=== PATIENT | male | born 1970 | race Caucasian/White ===

== ENCOUNTER → 2019-03-22 | Outpatient (CLI) | payer MEDICARE ==
--- NOTE | 2019-03-22 11:37 | REP ---
Right small toe series: Four views. History: Pain after injury. Findings: Four views of the right small toe demonstrate an intra-articular fracture involving the base of the proximal phalanx at the MTP joint. There is associated swelling. No displacement. Impression: Intra-articular fracture proximal phalanx of the fifth toe at the MTP joint. Nondisplaced. Electronically Signed by Dinesh Gonzalez MD 03/22/2019 11:28 A
== END ==
LOC: M WUC 10:13
PROVIDERS: ATTEND Physician Assistant
DX: S92.514A Nondisplaced fracture of proximal phalanx of right lesser toe(s), initial encounter for closed fracture (principal); X58.XXXA Exposure to other specified factors, initial encounter; Y92.89 Other specified places as the place of occurrence of the external cause

== ENCOUNTER → 2019-04-05 | Outpatient (REF) | payer MEDICARE ==
[2019-04-05 13:29] LABS: AMYLASE 49 U/L (25-115); LIPASE 134 U/L (73-393)
== END ==
LOC: M LAB REF 12:34
PROVIDERS: ATTEND Nurse Practitioner Adult Health
DX: R11.2 Nausea with vomiting, unspecified (principal)

== ENCOUNTER → 2022-03-08 | Outpatient (CLI) | payer MEDICARE | LOC: M RAD 11:33 | PROVIDERS: ATTEND Pain Medicine Interventional Pain Medicine | DX: M16.0 Bilateral primary osteoarthritis of hip (principal) ==

== ENCOUNTER 2022-04-02 12:08 | Emergency (ER) | payer MEDICARE ==
[2022-04-02] MEDS ORDERED: NS 500 ML IV ONE (12:45)
[2022-04-02 12:50] LABS: BASO % 0.5 % (0.0-1.0); EOS # 0.1 10^3/uL (0.0-0.5); EOS % 2.3 % (0.0-3.0); HEMATOCRIT 47.6 % (42.0-52.0); HEMOGLOBIN 16.7 g/dl (13.5-17.5); LYMPH # 1.5 10^3/uL (1.5-5.0); MEAN CORPUSCULAR HEMOGLOBIN 31.2 pg (27.0-33.0); MEAN CORPUSCULAR HGB CONC 35.1 g/dl (32.0-36.5); MEAN CORPUSCULAR VOLUME 88.8 fl (80.0-96.0); MONO # 0.6 10^3/uL (0.0-0.8); MONO % 11.5 % (2.0-8.0); NEUTROPHILS # 3.3 10^3/uL (1.5-8.5); NEUTROPHILS % 59.3 % (36.0-66.0); PLATELET COUNT, AUTOMATED 310 10^3/uL (150-450); RED BLOOD COUNT 5.36 10^6/uL (4.30-6.10); WHITE BLOOD COUNT 5.6 10^3/uL (4.0-10.0)
[2022-04-02] MEDS ORDERED: LORazepam 2 MG/ML VIAL IV STA (12:53)
[2022-04-02 13:18] LABS: MB/CK RELATIVE INDEX 2.05 (< OR =4)
[2022-04-02] MEDS ORDERED: ISOVUE-370 76% 100ML VIAL As Ordered ONE (13:42)
[2022-04-02 14:13] LABS: ALBUMIN 4.4 GM/DL (3.2-5.2); ALT/SGPT 78 U/L (12-78); BILIRUBIN,DIRECT 0.2 MG/DL (0.0-0.2); BILIRUBIN,TOTAL 0.5 MG/DL (0.2-1.0); BLOOD UREA NITROGEN 13 MG/DL (7-18); CARBON DIOXIDE LEVEL 19 MEQ/L (21-32); CHLORIDE LEVEL 106 MEQ/L (98-107); CREATININE FOR GFR 1.18 MG/DL (0.70-1.30); ETHYL ALCOHOL (ETHANOL) < 0.003 % (0.000-0.010); FREE T4 0.81 NG/DL (0.76-1.46); GLOMERULAR FILTRATION RATE > 60.0 (>56); GLUCOSE, FASTING 121 MG/DL (70-100); LIPASE 117 U/L (73-393); SODIUM LEVEL 139 MEQ/L (136-145); TOTAL PROTEIN 7.8 GM/DL (6.4-8.2)
[2022-04-02 14:39] LABS: CK-MB VALUE MASS 4.9 NG/ML (<3.6); MB/CK RELATIVE INDEX 1.75 (< OR =4)
[2022-04-02 14:41] LABS: INR 0.87; PROTHROMBIN TIME 12.2 SECONDS (12.7-14.5)
[2022-04-02 14:42] LABS: PARTIAL THROMBOPLASTIN TIME 27.7 SECONDS (25.9-37.0)
[2022-04-02 15:54] LABS: AMPHETAMINES LEVEL URINE NEGATIVE (NEGATIVE); BARBITURATES URINE NEGATIVE (NEGATIVE); BENZODIAZEPINES URINE NEGATIVE (NEGATIVE); CANNABINOIDS URINE POSITIVE (NEGATIVE); COCAINE METABOLITE URINE NEGATIVE (NEGATIVE); METHADONE URINE NEGATIVE (NEGATIVE); OPIATES URINE POSITIVE (NEGATIVE); PHENCYCLIDINE URINE NEGATIVE (NEGATIVE)
[2022-04-02 16:32] LABS: CK-MB VALUE MASS 4.4 NG/ML (<3.6); MB/CK RELATIVE INDEX 1.46 (< OR =4)
[2022-04-02 16:45] VITALS: BP 142/75
== END 2022-04-02 17:24 | disposition home or self-care (01) ==
LOC: M ED 12:08
DX: R07.9 Chest pain, unspecified (principal); I48.91 Unspecified atrial fibrillation; I10 Essential (primary) hypertension
CPT/HCPCS: 71045; 71275; 80047; 80048; 80076; 80307; 82077; 82550; 82553; 83690; 84439; 84443; 84484; 85025; 85610; 85730; 87486; 87581; 87633; 87798; 93005; 93041; 94760; 96361; 96374; 99285; J2060; Q9967

== ENCOUNTER 2022-10-24 12:57 | Emergency (ER) | payer MEDICARE ==
[~2022-10-24] VITALS: Ht 188 cm; Wt 127.3 kg
[2022-10-24 13:47] LABS: BASO % 0.9 % (0.0-1.0); EOS # 0.2 10^3/uL (0.0-0.5); EOS % 3.2 % (0.0-3.0); HEMATOCRIT 50.3 % (42.0-52.0); HEMOGLOBIN 17.2 g/dl (13.5-17.5); LYMPH # 1.2 10^3/uL (1.5-5.0); LYMPH % 25.8 % (24.0-44.0); MEAN CORPUSCULAR HEMOGLOBIN 31.7 pg (27.0-33.0); MEAN CORPUSCULAR HGB CONC 34.2 g/dl (32.0-36.5); MEAN CORPUSCULAR VOLUME 92.6 fl (80.0-96.0); MONO # 0.5 10^3/uL (0.0-0.8); MONO % 11.7 % (2.0-8.0); NEUTROPHILS # 2.7 10^3/uL (1.5-8.5); PLATELET COUNT, AUTOMATED 264 10^3/uL (150-450); RED BLOOD COUNT 5.43 10^6/uL (4.30-6.10); WHITE BLOOD COUNT 4.6 10^3/uL (4.0-10.0)
[2022-10-24 14:01] LABS: INR 0.91; PROTHROMBIN TIME 12.4 SECONDS (12.5-14.5)
[2022-10-24 14:12] LABS: BILIRUBIN,DIRECT 0.3 MG/DL (<0.4); BILIRUBIN,TOTAL 0.9 MG/DL (0.3-1.2); CK-MB VALUE MASS 3.1 NG/ML (<3.6); TOTAL PROTEIN 7.1 G/DL (5.7-8.2)
[2022-10-24 14:27] LABS: MB/CK RELATIVE INDEX 1.49 (< OR =4)
[2022-10-24 15:12] LABS: BLOOD UREA NITROGEN 7 MG/DL (9-23); CALCIUM LEVEL 9.1 MG/DL (8.5-10.1); CARBON DIOXIDE LEVEL 26 MMOL/L (20-31); CHLORIDE LEVEL 106 MMOL/L (98-107); CREATININE FOR GFR 0.69 MG/DL (0.70-1.30); GLOMERULAR FILTRATION RATE > 60.0 (>56); GLUCOSE, FASTING 98 MG/DL (60-100); POTASSIUM SERUM 4.1 MMOL/L (3.5-5.1); SODIUM LEVEL 139 MMOL/L (136-145)
[2022-10-24] MEDS ORDERED: ACETAMINOPHEN 500 MG TAB PO ONE (15:20)
[2022-10-24] MEDS ORDERED: ISOVUE-370 76% 100ML VIAL As Ordered ONE (15:23)
[2022-10-24] MEDS ORDERED: amLODIPine 5 MG TAB PO ONE (17:05)
[2022-10-24 17:13] VITALS: BP 168/82
[2022-10-24 18:00] VITALS: BP 152/91
[2022-10-24] MEDS ORDERED: AMLO1TAB24 PO (18:17)
== END 2022-10-24 18:54 | disposition home or self-care (01) ==
LOC: M ED 12:57
DX: I10 Essential (primary) hypertension (principal); R51.9 Headache, unspecified; M54.9 Dorsalgia, unspecified; F41.9 Anxiety disorder, unspecified; K21.9 Gastro-esophageal reflux disease without esophagitis; I48.91 Unspecified atrial fibrillation; Z87.891 Personal history of nicotine dependence; Z82.49 Family history of ischemic heart disease and other diseases of the circulatory system
CPT/HCPCS: 36415; 71045; 71275; 80047; 80048; 80076; 82550; 82553; 83690; 84484; 85025; 85610; 93005; 93041; 94760; 99285; Q9967

== ENCOUNTER → 2023-12-26 | Outpatient (REF) | payer MEDICARE ==
[~2023-12-26] MED LIST: AMLO1TAB24 PO
[2023-12-26 11:32] LABS: BASO % 0.4 % (0.0-1.0); EOS # 0.2 10^3/uL (0.0-0.5); EOS % 4.8 % (0.0-3.0); HEMATOCRIT 47.3 % (42.0-52.0); LYMPH # 1.6 10^3/uL (1.5-5.0); LYMPH % 33.8 % (24.0-44.0); MEAN CORPUSCULAR HEMOGLOBIN 32.4 pg (27.0-33.0); MEAN CORPUSCULAR HGB CONC 33.8 g/dl (32.0-36.5); MEAN CORPUSCULAR VOLUME 95.7 fl (80.0-96.0); MONO # 0.5 10^3/uL (0.0-0.8); MONO % 11.1 % (2.0-8.0); NEUTROPHILS # 2.4 10^3/uL (1.5-8.5); NEUTROPHILS % 49.7 % (36.0-66.0); PLATELET COUNT, AUTOMATED 298 10^3/uL (150-450); RED BLOOD COUNT 4.94 10^6/uL (4.30-6.10); WHITE BLOOD COUNT 4.8 10^3/uL (4.0-10.0)
[2023-12-26 11:58] LABS: ALBUMIN 4.2 G/DL (3.2-5.2)
[2023-12-26 12:06] LABS: PERCENT SATURATION 34.5 % (19.7-50.0)
== END ==
LOC: M LABWUC 10:30
PROVIDERS: ATTEND Orthopaedic Surgery
DX: Z01.818 Encounter for other preprocedural examination (principal); M25.562 Pain in left knee; M17.9 Osteoarthritis of knee, unspecified

== ENCOUNTER → 2024-01-02 | Outpatient (REF) | payer MEDICARE ==
[2024-01-02 16:29] LABS: INR 0.97; PARTIAL THROMBOPLASTIN TIME 27.3 SECONDS (24.8-34.2); PROTHROMBIN TIME 12.6 SECONDS (12.5-14.5)
== END ==
LOC: M LAB REF 16:10
PROVIDERS: ATTEND Internal Medicine
DX: Z01.818 Encounter for other preprocedural examination (principal); Z79.01 Long term (current) use of anticoagulants

== ENCOUNTER 2024-01-25 22:16 | Emergency (ER) | payer MEDICARE ==
[~2024-01-25] VITALS: Ht 188 cm; Wt 127.3 kg
[2024-01-25 22:36] VITALS: TEMP 97.4
[2024-01-25] MEDS ORDERED: FAMOTIDINE/NS 20MG/50ML BAG As Ordered ONE (22:42)
[2024-01-25] MEDS ORDERED: methylPREDNISolone 125MG 2ML VIAL As Ordered ONE (22:42)
[2024-01-25] MEDS ORDERED: FAMOTIDINE 20MG/2ML VIAL IVP ONE (22:45)
[2024-01-25] MEDS: methylPREDNISolone 125MG 2ML VIAL IV ONE (22:50)
[2024-01-25] MEDS: FAMOTIDINE IV BAG 20 MG in IV 1 EA IV ONE (22:55)
[2024-01-25 23:03] LABS: BASO % 0.4 % (0.0-1.0); EOS # 0.2 10^3/uL (0.0-0.5); EOS % 2.5 % (0.0-3.0); HEMATOCRIT 39.6 % (42.0-52.0); HEMOGLOBIN 13.7 g/dl (13.5-17.5); LYMPH # 1.5 10^3/uL (1.5-5.0); LYMPH % 19.7 % (24.0-44.0); MEAN CORPUSCULAR HEMOGLOBIN 32.6 pg (27.0-33.0); MEAN CORPUSCULAR HGB CONC 34.6 g/dl (32.0-36.5); MEAN CORPUSCULAR VOLUME 94.3 fl (80.0-96.0); MONO # 0.7 10^3/uL (0.0-0.8); MONO % 9.9 % (2.0-8.0); NEUTROPHILS % 66.7 % (36.0-66.0); PLATELET COUNT, AUTOMATED 461 10^3/uL (150-450); WHITE BLOOD COUNT 7.5 10^3/uL (4.0-10.0)
[2024-01-25 23:39] LABS: BLOOD UREA NITROGEN 19 MG/DL (9-23); CALCIUM LEVEL 9.3 MG/DL (8.5-10.1); CARBON DIOXIDE LEVEL 29 MMOL/L (20-31); CHLORIDE LEVEL 106 MMOL/L (98-107); CREATININE FOR GFR 0.78 MG/DL (0.70-1.30); GLOMERULAR FILTRATION RATE > 60.0 (>56); GLUCOSE, FASTING 113 MG/DL (60-100); POTASSIUM SERUM 4.2 MMOL/L (3.5-5.1); SODIUM LEVEL 140 MMOL/L (136-145)
[2024-01-25] MEDS: diphenhydrAMINE 50MG/ML VIAL IV STA (23:50)
[2024-01-26] MEDS: NS 1,000 ML IV ONE
[2024-01-26 00:46] VITALS: BP 106/72; O2SAT 97
[2024-01-26] MEDS ORDERED: PRED20TA PO (00:50)
[2024-01-26] MEDS ORDERED: HYDR-3713 (18:46)
[2024-01-26] MEDS ORDERED: CELE0.09 PO (22:39)
[2024-01-26] MEDS ORDERED: ASPI-615 PO (22:39)
[2024-01-26] MEDS ORDERED: AMIT25TA19 PO (22:39)
[2024-01-26] MEDS ORDERED: METH-1164 PO (22:39)
[2024-01-26] MEDS ORDERED: DOCU100C16 PO (22:39)
[2024-01-26] MEDS ORDERED: HYDR-4571 PO (22:39)
[2024-01-26] MEDS ORDERED: OLME20TA50 PO (22:39)
[2024-01-26] MEDS ORDERED: CART240C3 PO (22:39)
[2024-01-29] MEDS ORDERED: FEXO-157 PO (10:20)
== END 2024-01-26 00:50 | disposition home or self-care (01) ==
LOC: M ED 22:16
DX: T78.40XA Allergy, unspecified, initial encounter (principal); T78.3XXA Angioneurotic edema, initial encounter; I48.91 Unspecified atrial fibrillation; I10 Essential (primary) hypertension; F12.10 Cannabis abuse, uncomplicated; Z79.1 Long term (current) use of non-steroidal anti-inflammatories (NSAID); Z79.899 Other long term (current) drug therapy

== ENCOUNTER 2024-01-26 17:10 | Observation (INO) | payer MEDICARE ==
[~2024-01-26] VITALS: Ht 188 cm; Wt 126.2 kg
[~2024-01-26 17:10] MED LIST changes: +PRED20TA PO
[2024-01-26 17:44] LABS: BASO % 0.2 % (0.0-1.0); HEMATOCRIT 36.1 % (42.0-52.0); HEMOGLOBIN 12.7 g/dl (13.5-17.5); LYMPH # 0.8 10^3/uL (1.5-5.0); LYMPH % 4.8 % (24.0-44.0); MEAN CORPUSCULAR HEMOGLOBIN 32.7 pg (27.0-33.0); MEAN CORPUSCULAR HGB CONC 35.2 g/dl (32.0-36.5); MONO # 1.2 10^3/uL (0.0-0.8); MONO % 6.9 % (2.0-8.0); NEUTROPHILS # 14.6 10^3/uL (1.5-8.5); NEUTROPHILS % 87.4 % (36.0-66.0); PLATELET COUNT, AUTOMATED 504 10^3/uL (150-450); RED BLOOD COUNT 3.88 10^6/uL (4.30-6.10); WHITE BLOOD COUNT 16.7 10^3/uL (4.0-10.0)
[2024-01-26 18:05] LABS: BLOOD UREA NITROGEN 17 MG/DL (9-23); CALCIUM LEVEL 9.5 MG/DL (8.5-10.1); CARBON DIOXIDE LEVEL 23 MMOL/L (20-31); CHLORIDE LEVEL 105 MMOL/L (98-107); CREATININE FOR GFR 0.68 MG/DL (0.70-1.30); GLOMERULAR FILTRATION RATE > 60.0 (>56); GLUCOSE, FASTING 216 MG/DL (60-100); POTASSIUM SERUM 3.8 MMOL/L (3.5-5.1); SODIUM LEVEL 138 MMOL/L (136-145)
[2024-01-26] MEDS ORDERED: ISOVUE-370 76% 100ML VIAL As Ordered ONE (18:18)
[2024-01-26 18:32] LABS: CK-MB VALUE MASS < 1.0 NG/ML (<3.6)
[2024-01-26 18:33] LABS: CPK CREATINE PHOSPHOKINASE 70 U/L (46-171); MB/CK RELATIVE INDEX 1.42 (< OR =4)
[2024-01-26] MEDS: methylPREDNISolone 125MG 2ML VIAL IV ONE (18:37)
[2024-01-26] MEDS: FAMOTIDINE 20MG/2ML VIAL IVP ONE (18:38)
[2024-01-26] MEDS ORDERED: HYDR-3713 (18:46)
[2024-01-26 19:33] LABS: CK-MB VALUE MASS < 1.0 NG/ML (<3.6)
[2024-01-26 19:34] LABS: CPK CREATINE PHOSPHOKINASE 69 U/L (46-171); MB/CK RELATIVE INDEX 1.44 (< OR =4)
[2024-01-26] MEDS ORDERED: MOM 30ML SUSPENSION UDC PO PRN (21:40)
[2024-01-26] MEDS: ASPIRIN 81MG ENTERIC TABLET PO SCH (21:40)
[2024-01-26] MEDS ORDERED: ACETAMINOPHEN TAB 650MG DOSE (2X325MG) PO PRN (21:40)
[2024-01-26] MEDS ORDERED: AMIT25TA19 PO (22:39)
[2024-01-26] MEDS ORDERED: DOCU100C16 PO (22:39)
[2024-01-26] MEDS ORDERED: METH-1164 PO (22:39)
[2024-01-26] MEDS ORDERED: HYDR-4571 PO (22:39)
[2024-01-26] MEDS ORDERED: CART240C3 PO (22:39)
[2024-01-26] MEDS ORDERED: CELE0.09 PO (22:39)
[2024-01-26] MEDS ORDERED: OLME20TA50 PO (22:39)
[2024-01-26] MEDS ORDERED: ASPI-615 PO (22:39)
[2024-01-26] MEDS ORDERED: HOME MED LIST COMPLETE! XX SCH (22:40)
[2024-01-26] MEDS: MORPHINE 2 MG/ML 1ML VIAL IV ONE (23:06)
[2024-01-27] MEDS: methocarbamoL 500 MG TAB PO SCH (00:30)
[2024-01-27] MEDS: methylPREDNISolone 40MG 1ML VIAL IV SCH ×2 (05:50→10:07)
[2024-01-27 07:33] LABS: HEMOGLOBIN 13.1 g/dl (13.5-17.5); MEAN CORPUSCULAR HEMOGLOBIN 32.7 pg (27.0-33.0); MEAN CORPUSCULAR HGB CONC 34.5 g/dl (32.0-36.5); MEAN CORPUSCULAR VOLUME 94.8 fl (80.0-96.0); PLATELET COUNT, AUTOMATED 500 10^3/uL (150-450); RED BLOOD COUNT 4.01 10^6/uL (4.30-6.10); WHITE BLOOD COUNT 13.3 10^3/uL (4.0-10.0)
[2024-01-27] MEDS: diphenhydrAMINE 50MG/ML VIAL IV ONE (07:51)
[2024-01-27] MEDS: NS 500 ML IV ONE (07:51)
[2024-01-27] MEDS: MORPHINE 2 MG/ML 1ML VIAL IV PRN (07:52)
[2024-01-27 07:53] LABS: ALBUMIN 3.8 G/DL (3.2-5.2); ALKALINE PHOSPHATASE 81 U/L (46-116); ALT/SGPT 35 U/L (7.0-40); AST/SGOT 12 U/L (<34); BILIRUBIN,TOTAL 0.6 MG/DL (0.3-1.2); BLOOD UREA NITROGEN 14 MG/DL (9-23); CALCIUM LEVEL 9.4 MG/DL (8.5-10.1); CARBON DIOXIDE LEVEL 25 MMOL/L (20-31); CHLORIDE LEVEL 107 MMOL/L (98-107); CREATININE FOR GFR 0.57 MG/DL (0.70-1.30); GLOMERULAR FILTRATION RATE > 60.0 (>56); GLUCOSE, FASTING 169 MG/DL (60-100); POTASSIUM SERUM 4.5 MMOL/L (3.5-5.1); SODIUM LEVEL 139 MMOL/L (136-145); TOTAL PROTEIN 6.6 G/DL (5.7-8.2)
[2024-01-27] MEDS ORDERED: dilTIAZem 120MG **CD** CAPSULE PO SCH (09:00)
[2024-01-27 09:20] VITALS: BP 128/70; TEMP 98.2; O2SAT 98
[2024-01-27] MEDS: DOCUSATE SODIUM 100MG CAPSULE PO SCH (10:08)
[2024-01-27] MEDS: CETIRIZINE (ZyrTEC) 10 MG TAB PO SCH (10:09)
[2024-01-27] MEDS: ENOXAPARIN 40MG/0.4ML SYRINGE (J1650 PER 10MG) SC SCH (10:09)
[2024-01-27] MEDS: FAMOTIDINE IV BAG 20 MG in IV 1 EA IV SCH (11:28)
[2024-01-27] MEDS: NORCO, ANEXSIA 5/325MG TABLET (HYDROcodone/ACETAMINOPHEN) PO PRN ×3 (11:28→20:26)
[2024-01-27] MEDS: NICOTINE 21MG/24HR 1 EA TRANSDERMAL TD SCH (11:29)
[2024-01-27] MEDS: NS 1,000 ML IV SCH (11:42)
[2024-01-27 12:04] VITALS: BP 130/64; TEMP 98.8; O2SAT 94
[2024-01-27 15:57] VITALS: BP 114/59; TEMP 98.1; O2SAT 96
[2024-01-27] MEDS: CALCIUM CARBONATE 500 MG CHEW U/D PO PRN (18:06)
[2024-01-27 19:48] VITALS: BP 131/60; TEMP 97.7; O2SAT 94
[2024-01-27] MEDS: AMITRIPTYLINE 25MG TABLET PO PRN (20:20)
[2024-01-27 23:58] VITALS: BP 116/57; TEMP 97.9; O2SAT 93
[2024-01-28 03:44] VITALS: BP 113/65; TEMP 97.3; O2SAT 97
[2024-01-28 08:00] VITALS: BP 119/66; TEMP 98.5; O2SAT 96
[2024-01-28] MEDS: diphenhydrAMINE 50MG/ML VIAL IV ONE ×2 (10:28→19:21)
[2024-01-28] MEDS: traMADol 50 MG TAB PO PRN (10:29)
[2024-01-28 12:00] VITALS: BP 121/66; TEMP 99.2; O2SAT 96
[2024-01-28] MEDS: HYDROmorphone 4MG TABLET PO PRN (14:04)
[2024-01-28 17:00] VITALS: BP 130/59; TEMP 97.4; O2SAT 94
[2024-01-28 19:59] VITALS: BP 131/72; TEMP 98.1; O2SAT 95
[2024-01-28] MEDS: SENNA 8.6 MG TAB (SENOKOT) PO SCH (20:02)
[2024-01-28 23:53] VITALS: BP 123/59; TEMP 98.6; O2SAT 95
[2024-01-29 03:45] VITALS: BP 124/67; TEMP 98.2; O2SAT 96
[2024-01-29 06:58] LABS: HEMATOCRIT 35.7 % (42.0-52.0); HEMOGLOBIN 11.9 g/dl (13.5-17.5); MEAN CORPUSCULAR HEMOGLOBIN 31.6 pg (27.0-33.0); MEAN CORPUSCULAR HGB CONC 33.3 g/dl (32.0-36.5); MEAN CORPUSCULAR VOLUME 94.9 fl (80.0-96.0); PLATELET COUNT, AUTOMATED 427 10^3/uL (150-450); RED BLOOD COUNT 3.76 10^6/uL (4.30-6.10); WHITE BLOOD COUNT 11.5 10^3/uL (4.0-10.0)
[2024-01-29 07:53] VITALS: BP 122/69; TEMP 97.5; O2SAT 95
[2024-01-29] MEDS: predniSONE 10MG TAB PO SCH (08:03)
[2024-01-29] MEDS ORDERED: PRED10TA2 PO (10:20)
[2024-01-29] MEDS ORDERED: FAMO20TA PO (10:20)
[2024-01-29] MEDS ORDERED: ELIQ2.5T PO (10:20)
[2024-01-29] MEDS ORDERED: EPIP0.3I2 IM (10:20)
[2024-01-29] MEDS ORDERED: FEXO-63 PO (10:20)
[2024-01-29] MEDS ORDERED: TRAM50TA2 PO (10:20)
[2024-01-29] MEDS ORDERED: LOVE1INJ SC (10:49)
== END 2024-01-29 12:28 | disposition home or self-care (01) ==
LOC: M ED 17:10 → INTOOBSV 17:11 → M ED INP 17:11 → M PCU 01-27 09:15
PROVIDERS: ADMIT Family Medicine; ATTEND Family Medicine
DX: T78.40XA Allergy, unspecified, initial encounter (principal); T78.3XXA Angioneurotic edema, initial encounter; Z96.652 Presence of left artificial knee joint; Z98.890 Other specified postprocedural states; I10 Essential (primary) hypertension; R60.0 Localized edema; Z79.52 Long term (current) use of systemic steroids; Z79.01 Long term (current) use of anticoagulants; Z79.82 Long term (current) use of aspirin; I48.91 Unspecified atrial fibrillation; F12.10 Cannabis abuse, uncomplicated; Z79.1 Long term (current) use of non-steroidal anti-inflammatories (NSAID); Z79.899 Other long term (current) drug therapy
CPT/HCPCS: 36415; 71275; 80048; 80053; 82550; 82553; 84484; 85025; 85027; 93005; 93041; 93971; 94760; 96361; 96365; 96372; 96374; 96375; 96376; 97140; 97161; 99285; G0378; J1200; J1650; J2919; J7512; Q9967

== ENCOUNTER → 2024-04-16 | Outpatient (CLI) | payer MEDICARE ==
[~2024-04-16] MED LIST changes: +AMIT25TA19 PO; +ASPI-615 PO; +CART240C3 PO; +CELE0.09 PO; +DOCU100C16 PO; +ELIQ2.5T PO; +EPIP0.3I2 IM; +FAMO20TA PO; +FEXO-63 PO; +HYDR-3713; +HYDR-4571 PO; +LOVE1INJ SC; +METH-1164 PO; +OLME20TA50 PO; +PRED10TA2 PO; +TRAM50TA2 PO
[2024-04-16 16:48] LABS: BASO % 0.2 % (0.0-1.0); EOS # 0.1 10^3/uL (0.0-0.5); EOS % 2.1 % (0.0-3.0); HEMOGLOBIN 15.4 g/dl (13.5-17.5); LYMPH # 0.9 10^3/uL (1.5-5.0); LYMPH % 20.7 % (24.0-44.0); MEAN CORPUSCULAR HGB CONC 32.8 g/dl (32.0-36.5); MEAN CORPUSCULAR VOLUME 94.6 fl (80.0-96.0); MONO # 0.4 10^3/uL (0.0-0.8); NEUTROPHILS % 68.8 % (36.0-66.0); PLATELET COUNT, AUTOMATED 276 10^3/uL (150-450); RED BLOOD COUNT 4.97 10^6/uL (4.30-6.10); WHITE BLOOD COUNT 4.4 10^3/uL (4.0-10.0)
[2024-04-16 16:52] LABS: ERYTHROCYTE SEDIMENTATION RATE 9 mm/hr (0-20)
[2024-04-16 17:11] LABS: ALKALINE PHOSPHATASE 74 U/L (46-116); ALT/SGPT 41 U/L (7.0-40); AST/SGOT 19 U/L (<34); BILIRUBIN,TOTAL 0.6 MG/DL (0.3-1.2); BLOOD UREA NITROGEN 12 MG/DL (9-23); CALCIUM LEVEL 9.5 MG/DL (8.5-10.1); CARBON DIOXIDE LEVEL 26 MMOL/L (20-31); CHLORIDE LEVEL 109 MMOL/L (98-107); CREATININE FOR GFR 0.77 MG/DL (0.70-1.30); GLOMERULAR FILTRATION RATE > 60.0 (>56); GLUCOSE, FASTING 94 MG/DL (60-100); POTASSIUM SERUM 4.1 MMOL/L (3.5-5.1); SODIUM LEVEL 142 MMOL/L (136-145); TOTAL PROTEIN 6.8 G/DL (5.7-8.2)
[2024-04-16 17:13] LABS: COMPLEMENT C4 21.5 MG/DL (12-36); FREE T4 1.03 NG/DL (0.89-1.76); THYROID STIMULATING HORMONE 0.924 uIU/ML (0.55-4.78)
[2024-04-16 17:15] LABS: TOTAL T3 134.3 NG/DL (60.0-181.0)
[2024-04-16 17:16] LABS: THYROID PEROXIDASE ANTIBODY 32 U/ML (<60.0)
== END ==
LOC: M WUC 12:45
PROVIDERS: ATTEND Allergy & Immunology Allergy
DX: L50.1 Idiopathic urticaria (principal); T78.3XXA Angioneurotic edema, initial encounter; E07.9 Disorder of thyroid, unspecified

== ENCOUNTER → 2024-04-17 | Outpatient (REF) | payer MEDICARE | LOC: M LABDRWAD 17:18 | PROVIDERS: ATTEND Allergy & Immunology Allergy | DX: T78.3XXA Angioneurotic edema, initial encounter (principal); L50.1 Idiopathic urticaria ==

== ENCOUNTER 2024-08-21 18:51 | Emergency (ER) | payer MEDICARE ==
[~2024-08-21] VITALS: Ht 188 cm; Wt 127.3 kg
[2024-08-21 19:00] VITALS: TEMP 97.6
[2024-08-21 19:27] LABS: BASO % 0.2 % (0.0-1.0); EOS # 0.1 10^3/uL (0.0-0.5); HEMATOCRIT 43.5 % (42.0-52.0); HEMOGLOBIN 15.2 g/dl (13.5-17.5); LYMPH # 1.2 10^3/uL (1.5-5.0); LYMPH % 23.7 % (24.0-44.0); MEAN CORPUSCULAR HEMOGLOBIN 31.5 pg (27.0-33.0); MEAN CORPUSCULAR HGB CONC 34.9 g/dl (32.0-36.5); MEAN CORPUSCULAR VOLUME 90.1 fl (80.0-96.0); MONO # 0.6 10^3/uL (0.0-0.8); MONO % 11.8 % (2.0-8.0); NEUTROPHILS # 3.1 10^3/uL (1.5-8.5); NEUTROPHILS % 61.9 % (36.0-66.0); PLATELET COUNT, AUTOMATED 295 10^3/uL (150-450); RED BLOOD COUNT 4.83 10^6/uL (4.30-6.10)
[2024-08-21 19:51] LABS: CPK CREATINE PHOSPHOKINASE 215 U/L (46-171)
[2024-08-21 19:52] LABS: BLOOD UREA NITROGEN 13 MG/DL (9-23); CARBON DIOXIDE LEVEL 24 MMOL/L (20-31); CHLORIDE LEVEL 103 MMOL/L (98-107); CK-MB VALUE MASS 2.3 NG/ML (<3.6); CREATININE FOR GFR 0.69 MG/DL (0.70-1.30); GLOMERULAR FILTRATION RATE > 60.0 (>56); GLUCOSE, FASTING 91 MG/DL (60-100); MB/CK RELATIVE INDEX 1.06 (< OR =4); POTASSIUM SERUM 3.5 MMOL/L (3.5-5.1); SODIUM LEVEL 139 MMOL/L (136-145)
[2024-08-21] MEDS: methylPREDNISolone 125MG 2ML VIAL IV ONE (20:22)
[2024-08-21 23:46] VITALS: BP 135/61; O2SAT 97
[2024-08-21] MEDS ORDERED: PRED20TA PO (23:52)
== END 2024-08-22 00:10 | disposition home or self-care (01) ==
LOC: M ED 18:51 → EDBD 18:51 → M ED 08-22 00:10
DX: R21 Rash and other nonspecific skin eruption (principal); T36.1X5A Adverse effect of cephalosporins and other beta-lactam antibiotics, initial encounter; J06.9 Acute upper respiratory infection, unspecified; B34.2 Coronavirus infection, unspecified; B34.1 Enterovirus infection, unspecified; I10 Essential (primary) hypertension; K21.9 Gastro-esophageal reflux disease without esophagitis; Z88.1 Allergy status to other antibiotic agents; Z79.899 Other long term (current) drug therapy; Z79.52 Long term (current) use of systemic steroids
CPT/HCPCS: 71045; 80048; 82550; 82553; 84484; 85025; 87486; 87581; 87633; 87798; 93005; 93041; 94760; 96374; 99285; J2919

== ENCOUNTER 2024-11-11 14:10 | Emergency (ER) | payer MEDICARE ==
[~2024-11-11] VITALS: Ht 188 cm; Wt 137.8 kg
[2024-11-11 14:18] VITALS: TEMP 97.3
[2024-11-11 17:00] VITALS: BP 149/81; O2SAT 96
== END 2024-11-11 17:03 | disposition home or self-care (01) ==
LOC: M ED 14:10
DX: S56.912A Strain of unspecified muscles, fascia and tendons at forearm level, left arm, initial encounter (principal); Y92.9 Unspecified place or not applicable; Y93.9 Activity, unspecified; Y99.9 Unspecified external cause status; Z88.1 Allergy status to other antibiotic agents; Z79.52 Long term (current) use of systemic steroids; Z79.899 Other long term (current) drug therapy

== ENCOUNTER → 2024-11-14 | Outpatient (CLI) | payer MEDICARE | LOC: M SOG 14:01 | PROVIDERS: ATTEND Physician Assistant | DX: M16.12 Unilateral primary osteoarthritis, left hip (principal); M25.462 Effusion, left knee ==

== ENCOUNTER → 2024-11-15 | Outpatient (CLI) | payer MEDICARE | LOC: M PLAIMG 10:33 | PROVIDERS: ATTEND Physician Assistant | DX: M25.522 Pain in left elbow (principal) ==